=== PATIENT | male | born 1990 | race African-American/Black ===

== ENCOUNTER 2019-08-16 08:25 | Emergency (ER) | payer MEDICAID ==
[~2019-08-16] VITALS: Ht 180.3 cm; Wt 117.0 kg
[2019-08-16 08:25] VITALS: BP 142/87
--- NOTE | 2019-08-16 09:03 | PHYS DOC ---
Adult General Chief Complaint Chief Complaint: FLU SYMPTOM HPI HPI 29-year-old male presents with cough, congestion, body aches, and fever. The patient is having symptoms for about 3 days. He presents today because his sputum is now yellowish green color. He has had fever at home, but has not measured a fever. He has diffuse body aches all over. Review of Systems Review of Systems Constitutional: Fever, chills, body aches [] Eyes: Denies change in visual acuity, redness, or eye pain [] HENT: nasal congestion [] Respiratory: Denies cough or shortness of breath [] Cardiovascular: No additional information not addressed in HPI [] GI: Denies abdominal pain, nausea, vomiting, bloody stools or diarrhea [] : Denies dysuria or hematuria [] Musculoskeletal: Denies back pain or joint pain [] Integument: Denies rash or skin lesions [] Neurologic: Denies headache, focal weakness or sensory changes [] Endocrine: Denies polyuria or polydipsia [] All other systems were reviewed and found to be within normal limits, except as documented in this note. Physical Exam Physical Exam Constitutional: Well developed, well nourished, no acute distress, non-toxic appearance. [] HENT: Normocephalic, atraumatic, bilateral external ears normal, oropharynx moist, no oral exudates, nose congested. Bilateral tympanic membranes normal.[] Eyes: PERRLA, EOMI, conjunctiva normal, no discharge. [] Neck: Normal range of motion, no tenderness, supple, no stridor. [] Cardiovascular:Heart rate regular rhythm, no murmur [] Lungs & Thorax: Bilateral breath sounds diminished but clear to auscultation [] Abdomen: Bowel sounds normal, soft, no tenderness, no masses, no pulsatile masses. [] Skin: Warm, dry, no erythema, no rash. [] Back: No tenderness, no CVA tenderness. [] Extremities: No tenderness, no cyanosis, no clubbing, ROM intact, no edema. [] Neurologic: Alert and oriented X 3, normal motor function, normal sensory function, no focal deficits noted. [] Psychologic: Affect normal, judgement normal, mood normal. [] EKG EKG [] Radiology/Procedures Radiology/Procedures [] Impressions: CHEST PA LATERAL CLINICAL INDICATION: Cough with sputum, fever. COMPARISON: None FINDINGS: Heart is normal in size. Diffuse bilateral prominent bronchial markings with interstitial opacities. No focal consolidation. No pneumothorax or pleural effusion. Visualized bony thorax within normal limits. IMPRESSION: Findings of acute bronchitis. Superimposed atypical/viral interstitial infection is also a possibility. Electronically signed by: Christian Michel DO (08/16/2019 9:15 AM) [id number] DICTATED AND SIGNED BY: CHRISTIAN MICHEL DO DATE: 08/16/19914 CC: FABIOLA OSEI DO; PCP,MARIELENA ~ Course & Med Decision Making Course & Med Decision Making Pertinent Labs and Imaging studies reviewed. (See chart for details) The patient's labs are unremarkable. His chest x-ray does show prominent bronchial markings. There is no focal consolidation, but this could be atypical. His influenza is negative. I will go ahead and treat him with azithromycin for 5 days. He is stable for discharge at this time. [] Dragon Disclaimer Dragon Disclaimer This electronic medical record was generated, in whole or in part, using a voice recognition dictation system. Departure Departure: Impression: Primary Impression: Atypical pneumonia Disposition: HOME, SELF-CARE Condition: STABLE Referrals: PCP,MARIELENA (PCP) Patient Instructions: Pneumonia, Adult, [id number] Scripts Azithromycin (AZITHROMYCIN TABLET) 250 Mg Tablet 1 PKG PO UD for pneumonia, #6 TAB Prov: FABIOLA OSEI DO 08/16/19 FABIOLA OSEI DO Aug 16, 2019 09:03
--- NOTE | 2019-08-16 09:18 | RAD ---
CHEST PA LATERAL CLINICAL INDICATION: Cough with sputum, fever. COMPARISON: None FINDINGS: Heart is normal in size. Diffuse bilateral prominent bronchial markings with interstitial opacities. No focal consolidation. No pneumothorax or pleural effusion. Visualized bony thorax within normal limits. IMPRESSION: Findings of acute bronchitis. Superimposed atypical/viral interstitial infection is also a possibility. Electronically signed by: Christian Velasquez DO (08/16/2019 9:15 AM) [id number]
[2019-08-16 09:59] LABS: INFLUENZA A PATIENT NEGATIVE (NEGATIVE); INFLUENZA B PATIENT NEGATIVE (NEGATIVE)
[2019-08-16] MEDS ORDERED: AZIT250T6 PO (10:06)
== END 2019-08-16 10:10 | disposition home or self-care (01) ==
LOC: ER 08:25
DX: J18.9 Pneumonia, unspecified organism (principal)
CPT/HCPCS: 71046; 87804; 99285

== ENCOUNTER 2022-03-11 22:57 | Emergency (ER) | payer MEDICAID ==
[~2022-03-11] VITALS: Ht 180.3 cm; Wt 114.3 kg
[~2022-03-11 22:57] MED LIST: AZIT250T6 PO
--- NOTE | 2022-03-11 23:18 | PHYS DOC ---
Past History Past Medical History: Asthma Past Surgical History: No Surgical History Alcohol Use: None Drug Use: None General Adult EDM: Chief Complaint: OTHER COMPLAINTS HPI: HPI: ".. My mouth and jaw is swollen on the Lt... and even down into my neck...." Patient is a 31 year old male who presents with above hx and complaints of possible dental versus parotid/submandibular gland infection. Patient's teeth in fair repair. Are nontender to percussion. Does have adenopathy and the angle of neck. Denies any history immunosuppression. No history of travel. No history of ill contacts. No history of other illnesses. Such as sarcoid or previous episodes of parotid obstruction. Review of Systems: Review of Systems: Constitutional: Denies fever or chills Eyes: Denies change in visual acuity HENT: Complains of left facial swelling Respiratory: Denies cough or shortness of breath Cardiovascular: Denies chest pain or edema GI: Denies abdominal pain, nausea, vomiting, bloody stools or diarrhea : Denies dysuria Musculoskeletal: Denies back pain or joint pain Integument: Denies rash Neurologic: Denies headache, focal weakness or sensory changes Endocrine: Denies polyuria or polydipsia Lymphatic: Denies swollen glands Psychiatric: Denies depression or anxiety Family History: Family History: Noncontributory Current Medications: Current Meds: See nursing for home meds Allergies: Allergies: Allergies Coded Allergies Type Severity Reaction Last Updated Verified No Known Drug Allergies 08/16/19 No Physical Exam: PE: Constitutional: Well developed, well nourished, no acute distress, non-toxic appearance. [] HENT: Normocephalic, atraumatic, bilateral external ears normal, oropharynx m oist, no oral exudates, nose normal. Left mandibular swelling and parotid and submandibular swelling. Adenopathy at the angle of the left. Mandible Eyes: PERRLA, EOMI, conjunctiva normal, no discharge. [] Neck: Normal range of motion, adenopathy and tenderness at angle of mandible and upper neck cervical chain, supple, no stridor. [] Cardiovascular:Heart rate regular rhythm, no murmur [] Lungs & Thorax: Bilateral breath sounds clear to auscultation [] Abdomen: Bowel sounds normal, soft, no tenderness, no masses, no pulsatile masses. [] Skin: Warm, dry, no erythema, no rash. [] Back: No tenderness, no CVA tenderness. [] Extremities: No tenderness, no cyanosis, no clubbing, ROM intact, no edema. [] Neurologic: Alert and oriented X 3, normal motor function, normal sensory function, no focal deficits noted. [] Psychologic: Affect normal, judgement normal, mood normal. [] Current Patient Data: Vital Signs: Vital Signs Date Time Temp Pulse Resp B/P (MAP) Pulse Ox O2 Delivery O2 Flow Rate FiO2 03/11/22 23:02 98.5 68 18 135/68 (90) 98 Room Air EKG: EKG: [] Radiology/Procedures: Radiology/Procedures: [] Heart Score: C/O Chest Pain: N/A Risk Factors: Risk Factors: DM, Current or recent (<one month) smoker, HTN, HLP, family history of CAD, obesity. Risk Scores: Score 0 - 3: 2.5% MACE over next 6 weeks - Discharge Home Score 4 - 6: 20.3% MACE over next 6 weeks - Admit for Clinical Observation Score 7 - 10: 72.7% MACE over next 6 weeks - Early Invasive Strategies Course & Med Decision Making: Course & Med Decision Making Pertinent Labs and Imaging studies reviewed. (See chart for details) Patient to follow-up with dentist. Patient to use sour fruits or candies. Decrease occlusion parotid and submandibular areas. Patient take Keflex 500 mg 3 times a day for next 10 days. Patient return if any concerns. Alternate diagnosis discussed patient. Patient must follow-up. Impression: 1. Parotid and submandibular edema-obstruction versus infection or both. [] Dragon Disclaimer: Dragcas Disclaimer: This electronic medical record was generated, in whole or in part, using a voice recognition dictation system. Departure Departure: Referrals: PCP,NO (PCP) Scripts Cephalexin (KEFLEX) 500 Mg Capsule 500 MG PO TID for dental, submadibular edema inf for 10 Days, #30 CAP Prov: CHRISTIANO JOSEPH MD 03/11/22 Nikole Disclaimer This chart was dictated in whole or in part using Voice Recognition software in a busy, high-work load, and often noisy Emergency Department environment. It may contain unintended and wholly unrecognized errors or omissions. Dragon Disclaimer This chart was dictated in whole or in part using Voice Recognition software in a busy, high-work load, and often noisy Emergency Department environment. It may contain unintended and wholly unrecognized errors or omissions. Dragon Disclaimer This chart was dictated in whole or in part using Voice Recognition software in a busy, high-work load, and often noisy Emergency Department environment. It may contain unintended and wholly unrecognized errors or omissions. CHRISTIANO JOSEPH MD Mar 11, 2022 23:18
[2022-03-11] MEDS ORDERED: CEPH500C PO (23:50)
[2022-03-11 23:57] VITALS: BP 134/82
[2022-03-12] MEDS ORDERED: cefTRIAXone IM 1 GM VIAL IM ONE (00:30)
== END 2022-03-12 00:05 | disposition home or self-care (01) ==
LOC: ER 22:57
DX: R60.0 Localized edema (principal); R22.1 Localized swelling, mass and lump, neck; J45.909 Unspecified asthma, uncomplicated
CPT/HCPCS: 96372; 99283; J0696